=== PATIENT | female | born 1980 | race Caucasian/White ===

== ENCOUNTER 2021-10-21 08:30 | Outpatient (CLI) | payer BC | END 2021-10-21 09:36 | disposition home or self-care (01) | LOC: NST 08:30 | PROVIDERS: ATTEND Obstetrics & Gynecology Maternal & Fetal Medicine | DX: Z34.83 Encounter for supervision of other normal pregnancy, third trimester (principal) ==

== ENCOUNTER 2021-11-21 10:08 | Outpatient (CLI) | payer BC | END 2021-11-21 11:06 | disposition home or self-care (01) | LOC: NST 10:08 | PROVIDERS: ATTEND Obstetrics & Gynecology | DX: Z34.83 Encounter for supervision of other normal pregnancy, third trimester (principal) ==

== ENCOUNTER 2021-12-17 09:57 | Outpatient (CLI) | payer BC | END 2021-12-17 10:44 | disposition home or self-care (01) | LOC: NST 09:57 | PROVIDERS: ATTEND Obstetrics & Gynecology | DX: Z34.83 Encounter for supervision of other normal pregnancy, third trimester (principal) ==

== ENCOUNTER 2021-12-17 13:45 | Inpatient (IN) | payer BC ==
[~2021-12-17] VITALS: Ht 157.5 cm; Wt 68.5 kg
[2021-12-25] MEDS ORDERED: PRENATAL ONE D1 EACH PO (10:34)
[2021-12-25] MEDS ORDERED: B COMPLEX1 EACH PO (10:35)
[2021-12-25] MEDS ORDERED: NOXIFOL-D32500 UNIT PO (10:37)
[2021-12-25] MEDS ORDERED: LOVENOX60 MG/0.6 SUBCUTANEO (10:37)
== END 2021-12-27 13:06 | disposition home or self-care (01) | DRG 807 ==
LOC: LDR 12-25 05:14 → OB/GYN 12-26 07:37 → LDR 01-01 13:45
PROVIDERS: ADMIT Obstetrics & Gynecology; ATTEND Obstetrics & Gynecology
PROC: 10E0XZZ Delivery of Products of Conception, External Approach (ICD-10-PCS; principal; 2021-12-25)
PROC: 0KQM0ZZ Repair Perineum Muscle, Open Approach (ICD-10-PCS; 2021-12-25)
PROC: 4A1HXCZ Monitoring of Products of Conception, Cardiac Rate, External Approach (ICD-10-PCS; 2021-12-25)
DX: O70.1 Second degree perineal laceration during delivery (principal); Z37.0 Single live birth; Z3A.39 39 weeks gestation of pregnancy; Z20.822 Contact with and (suspected) exposure to COVID-19

== ENCOUNTER 2021-12-20 10:14 | Outpatient (CLI) | payer BC | END 2021-12-20 10:57 | disposition home or self-care (01) | LOC: NST 10:14 | PROVIDERS: ATTEND Obstetrics & Gynecology | DX: Z34.83 Encounter for supervision of other normal pregnancy, third trimester (principal) ==

== ENCOUNTER 2021-12-23 11:29 | Outpatient (CLI) | payer BC | END 2021-12-23 12:13 | disposition home or self-care (01) | LOC: NST 11:29 | PROVIDERS: ATTEND Obstetrics & Gynecology | DX: Z34.83 Encounter for supervision of other normal pregnancy, third trimester (principal) ==